=== PATIENT | male | born 1965 | race Caucasian/White ===

== ENCOUNTER 2019-04-01 05:15 | Emergency (ER) | payer BC ==
[~2019-04-01] VITALS: Ht 182.9 cm; Wt 87.8 kg
--- NOTE | 2019-04-01 05:26 | NUR ---
diagnosed with pnuemonia 6 months ago. states he got better but lately he has had hot/cold sensations and coughing "white foam"
[2019-04-01] MEDS ORDERED: DEXAMETHASONE 4 MG TABLET ONE (05:45)
[2019-04-01] MEDS ORDERED: DEXAMETHASONE 4 MG TABLET PO ONE (06:00)
--- NOTE | 2019-04-01 06:21 | NUR ---
PT RESTING ON [facility]URI. UPDATED ON POC.
[2019-04-01 06:29] LABS: BASOPHILS # (AUTO) 0.01 x10^3/uL (0-0.1); BASOPHILS % (AUTO) 0 % (0-1); EOSINOPHILS # (AUTO) 0.44 x10^3/uL (0-0.4); EOSINOPHILS % (AUTO) 7 % (1-7); LYMPHOCYTES # (AUTO) 1.51 x10^3/uL (1-3.4); LYMPHOCYTES % (AUTO) 24 % (22-44); MD NO; MEAN CORPUSCULAR HGB CONC 33.2 g/dL (33.2-36.2); MEAN CORPUSCULAR VOLUME 93.3 fL (81-97); MEAN PLATELET VOLUME 7.1 fL (7.4-10.4); MONOCYTES # (AUTO) 0.55 x10^3/uL (0.2-0.8); MONOCYTES % (AUTO) 9 % (2-9); NEUTROPHILS # (AUTO) 3.67 x10^3/uL (1.8-6.8); NEUTROPHILS % (AUTO) 59 % (42-75); PLATELET COUNT 277 x10^3/uL (130-400); RED BLOOD COUNT 4.62 x10^6/uL (4.38-5.82); RED CELL DISTRIBUTION WIDTH 13.3 % (9.4-14.8)
[2019-04-01] MEDS ORDERED: ALBUTEROL/IPRATROPIUM 2.5MG/0.5MG, 3 ML NPPB ONE (06:30)
[2019-04-01] MEDS ORDERED: ALBUTEROL/IPRATROPIUM 2.5MG/0.5MG, 3 ML ONE (06:38)
[2019-04-01 06:41] LABS: ALBUMIN 3.8 g/dL (3.4-5.0); ANION GAP 3 mmol/L (5-15); CALCIUM 8.8 mg/dL (8.5-10.1); CHLORIDE 107 mmol/L (98-107); CREATININE 1.05 mg/dL (0.7-1.3)
--- NOTE | 2019-04-01 06:47 | NUR ---
BEDSIDE REPORT FROM WINIFRED RN, PT TO BE DC.
[2019-04-01 07:36] VITALS: BP 130/67
== END 2019-04-02 07:01 | disposition home or self-care (01) ==
LOC: ED 06:01
DX: J06.9 Acute upper respiratory infection, unspecified (principal); J18.9 Pneumonia, unspecified organism; R00.1 Bradycardia, unspecified
CPT/HCPCS: 36415; 71046; 80048; 82040; 83880; 85025; 93005; 94640; 99284; J7620